=== PATIENT | female | born 1980 | race Hispanic/Latino ===

== ENCOUNTER 2018-05-20 19:59 | Emergency (ER) | payer MEDICAID ==
[2018-05-20] MEDS ORDERED: ACETAMINOPHEN 325 MG TAB ONE (21:20)
== END 2018-05-20 21:26 | disposition home or self-care (01) ==
LOC: EDH 19:59
DX: S93.401A Sprain of unspecified ligament of right ankle, initial encounter (principal); E11.9 Type 2 diabetes mellitus without complications; X58.XXXA Exposure to other specified factors, initial encounter; Y93.89 Activity, other specified; Y92.009 Unspecified place in unspecified non-institutional (private) residence as the place of occurrence of the external cause; Y99.8 Other external cause status
CPT/HCPCS: 73610

== ENCOUNTER 2018-06-23 11:17 | Emergency (ER) | payer MEDICAID, OTHER ==
[2018-06-23 11:44] LABS: BASOPHILS % (AUTO) 0.4 % (0.0-5.0); HEMATOCRIT 38.2 % (36-48); LYMPHOCYTES % (AUTO) 29.4 % (21.0-51.0); MEAN CORPUSCULAR HEMOGLOBIN 27.9 pg (27.0-33.0); MEAN CORPUSCULAR HGB CONC 33.6 g/dL (32.0-36.0); MONOCYTES % (AUTO) 5.9 % (3.0-13.0); NEUTROPHILS % (AUTO) 61.3 % (40.0-77.0); PLATELET COUNT (AUTO) 304 K/uL (130-400); RED CELL DISTRIBUTION WIDTH 14.5 % (11.0-15.5)
== END 2018-06-23 13:21 | disposition home or self-care (01) ==
LOC: EDH 11:17
DX: O20.0 Threatened abortion (principal); E11.9 Type 2 diabetes mellitus without complications; Z90.49 Acquired absence of other specified parts of digestive tract; Z79.899 Other long term (current) drug therapy; Z3A.08 8 weeks gestation of pregnancy
CPT/HCPCS: 36415; 76817; 84702; 85025; 86900; 86901

== ENCOUNTER 2018-12-27 16:45 | Inpatient (IN) | payer MEDICAID ==
[~2018-12-27] VITALS: Ht 162.6 cm; Wt 102.1 kg
[2018-12-27 17:51] LABS: APPEARANCE,URINE Clear (CLEAR); BILIRUBIN,URINE Negative (NEGATIVE); COLOR,URINE Yellow (YELLOW); GLUCOSE, URINE (UA) >=1000 mg/dL (NEGATIVE); KETONES,URINE 15 mg/dL (NEGATIVE); LEUKOCYTE ESTERASE ,URINE Small (NEGATIVE); NITRATE,URINE Negative (NEGATIVE); OCCULT BLOOD,URINE Negative (NEGATIVE); PH,URINE 5.5 (5.0-8.0); PROTEIN,URINE Negative (NEGATIVE); UROBILINOGEN,URINE 0.2 mg/dL (0.2-1.0)
[2018-12-27 17:58] LABS: BACTERIA,URINE Few /HPF (None Seen); RBC,URINE 0-1 /HPF (0-1); YEAST,URINE BUDDING Rare /HPF (None Seen)
[2018-12-27 18:00] LABS: SQUAMOUS EPITHELIAL CELL,UR Few /HPF (0-2)
[2018-12-27 18:40] LABS: CREATININE 0.7 mg/dL (0.5-1.5); POTASSIUM 3.9 mmol/L (3.5-5.1)
[2018-12-27 18:44] LABS: INR 0.9 (0.85-1.15); PARTIAL THROMBOPLASTIN TIME 26.9 SEC (26.3-35.5); PROTHROMBIN TIME 9.5 SEC (9.6-11.6)
[2018-12-27 18:45] LABS: ALBUMIN 2.7 g/dL (3.5-5.0); BILIRUBIN,TOTAL 0.5 mg/dL (0.2-1.0); TOTAL PROTEIN, SERUM 7.3 g/dL (6.0-8.3); URIC ACID 5.1 mg/dL (2.6-7.2)
[2018-12-27 18:56] LABS: BASOPHILS % (AUTO) 0.3 % (0.0-5.0); EOSINOPHILS % (AUTO) 0.6 % (0.0-8.0); LYMPHOCYTES % (AUTO) 22.9 % (21.0-51.0); MEAN CORPUSCULAR HEMOGLOBIN 27.8 pg (27.0-33.0); MEAN CORPUSCULAR HGB CONC 34.1 g/dL (32.0-36.0); MEAN CORPUSCULAR VOLUME 81.4 fL (79-99); MONOCYTES % (AUTO) 4.8 % (3.0-13.0); NEUTROPHILS % (AUTO) 71.4 % (40.0-77.0); PLATELET COUNT (AUTO) 236 K/uL (130-400); RED BLOOD CELL COUNT(AUTO) 4.91 MIL/uL (4.00-5.50); RED CELL DISTRIBUTION WIDTH 15.1 % (11.0-15.5); WHITE BLOOD COUNT (AUTO) 7.4 K/uL (4.8-10.8)
[2018-12-27] MEDS ORDERED: INSULIN HUMULIN R 100 UNIT/ML 3ML ONE (20:34)
[2018-12-27] MEDS ORDERED: INSULIN NPH 100 UNIT/ML 3ML SQ SCH (21:00)
[2018-12-28] MEDS: LACTATED RINGERS 1000ML 1,000 ML IV PRN ×2 (02:19→23:40)
[2018-12-28] MEDS ORDERED: INSULIN HUMULIN R 100 UNIT/ML 3ML SQ SCH ×2 (09:00)
[2018-12-28] MEDS ORDERED: INSULIN NPH 100 UNIT/ML 3ML SQ SCH (09:00)
[2018-12-28] MEDS ORDERED: CALDOLOR 800MG+NS 250ML 250 ML IV PRN (11:30)
[2018-12-28] MEDS ORDERED: CEFAZOLIN SODIUM 1 GM VIAL IVP PRN (11:30)
[2018-12-28] MEDS ORDERED: DEXAMETHASONE SOD PHOSPHATE 10MG/ML 1ML VIAL ONE (12:24)
[2018-12-28] MEDS ORDERED: ONDANSETRON HCL 4 MG/2 ML VIAL ONE (12:24)
[2018-12-28] MEDS ORDERED: OXYTOCIN 10 USP UNITS/ML ONE (12:25)
[2018-12-28] MEDS ORDERED: EPHEDRINE SULFATE 50 MG/ML AMPULE ONE (12:25)
[2018-12-28] MEDS ORDERED: DURAMORPH PF1 MG/ML 10ML AMP IV ONE (12:25)
[2018-12-28] MEDS ORDERED: CEFAZOLIN SODIUM 1 GM VIAL IVP ONE (12:45)
[2018-12-28] MEDS ORDERED: DiphenhydrAMINE HCL 50 MG/ML VIAL ONE (13:07)
[2018-12-28] MEDS ORDERED: OXYTOCIN-LR 20 UNITS/1000 ML 1,000 ML IV PRN (13:45)
[2018-12-28] MEDS ORDERED: MEPERIDINE-PF 75 MG/ML SYG IM PRN (13:45)
[2018-12-28] MEDS ORDERED: SODIUM CHLORIDE 0.9% 10 ML VIAL IVP PRN (13:45)
[2018-12-28] MEDS ORDERED: DEXTROSE 5 %-0.45 % NACL 1,000 ML IV PRN (13:45)
[2018-12-28] MEDS ORDERED: PROMETHAZINE HCL 25 MG/ML 1ML AMPULE IM PRN (13:45)
[2018-12-28] MEDS ORDERED: MEPERIDINE-PF 25 MG/ML SYG IV PRN (15:00)
[2018-12-28 15:57] VITALS: BP 140/75
[2018-12-28] MEDS: INSULIN HUMULIN R 100 UNIT/ML 3ML SQ SCH ×2 (16:52→21:10)
[2018-12-28] MEDS ORDERED: MEPERIDINE-PF 50 MG/ML SYG ONE (16:57)
--- NOTE | 2018-12-28 17:02 | NUR ---
PT C/O THROBBING PAIN TO INCISION 10/21. DEMEROL 50MG+25MG (TOTAL 75MG ORDERED) AND PHENERGAN 25MG GIVEN TO PT IM TO RIGHT DELTOID. NO BLOOD RETURN ON ASPIRATION. IM GIVEN USING ASEPTIC TECHNIQUE. PT TOLERATED WELL.
[2018-12-28 19:42] VITALS: BP 139/103
[2018-12-28 20:25] VITALS: BP 123/55
[2018-12-28] MEDS: CALDOLOR 800MG+NS 250ML 250 ML IV SCH (21:12)
[2018-12-28] MEDS ORDERED: INSU100V3 IJ ×2 (21:36)
[2018-12-28] MEDS ORDERED: NPH,100V SQ ×2 (21:36)
[2018-12-28] MEDS ORDERED: PREN1TAB80 PO (21:36)
[2018-12-28 23:10] VITALS: BP 138/74
[2018-12-29 03:30] VITALS: BP 114/52
[2018-12-29] MEDS: CALDOLOR 800MG+NS 250ML 250 ML IV SCH (06:07)
--- NOTE | 2018-12-29 06:10 | NUR ---
quevedo catheter removed, tip intact. abdominal dressing removed, incision is dry and intact , applied telfa dressing, applied abdominal binder. informed to call for assistance to the bathroom, pt voiced understanding. Addendum: 12/29/18 at 0720 by ADRIAN RIVAS RN Amended: Links added.
[2018-12-29 07:08] LABS: MEAN CORPUSCULAR HEMOGLOBIN 27.5 pg (27.0-33.0); MEAN CORPUSCULAR HGB CONC 33.6 g/dL (32.0-36.0); MEAN CORPUSCULAR VOLUME 81.7 fL (79-99); PLATELET COUNT (AUTO) 200 K/uL (130-400); RED CELL DISTRIBUTION WIDTH 14.7 % (11.0-15.5); WHITE BLOOD COUNT (AUTO) 11.5 K/uL (4.8-10.8)
[2018-12-29] MEDS: INSULIN HUMULIN R 100 UNIT/ML 3ML SQ SCH ×3 (07:21→21:19)
[2018-12-29 07:25] VITALS: BP 130/75
[2018-12-29] MEDS ORDERED: ACETAMINOPHEN EXTRA STRENGTH 500 MG TABLET PO PRN (08:45)
[2018-12-29] MEDS ORDERED: HYDROCODONE/ACETAMINOPHEN 5/325 MG TAB PO PRN (08:45)
[2018-12-29] MEDS ORDERED: BISACODYL 10 MG SUPP.RECT RC PRN (08:45)
[2018-12-29] MEDS: SIMETHICONE 80 MG TAB.CHEW PO PRN ×3 (08:55→21:20)
[2018-12-29] MEDS: DOCUSATE SODIUM 100 MG CAP PO SCH ×2 (08:55→21:20)
[2018-12-29] MEDS: IBUPROFEN 600 MG TABLET PO PRN ×2 (08:58→16:29)
--- NOTE | 2018-12-29 09:00 | NUR ---
PATIENT STATES HAVING VOIDED PIV WAS REMOVED AND IV SITE WNL.
[2018-12-29 11:24] VITALS: BP 117/70
--- NOTE | 2018-12-29 11:30 | NUR ---
DR. AMOR ROUNDED AND INDICATED THAT IF ALL GOES WELL SHE WILL DISCHARGE HER IN A.M.
--- NOTE | 2018-12-29 13:55 | NUR ---
PATIENT DENIES ANY PAIN. STATES BEING TIRED AND WANTING TO TAKE A NAP.
[2018-12-29 15:13] VITALS: BP 131/63
[2018-12-29 16:36] VITALS: BP 135/77
[2018-12-29 20:07] VITALS: BP 139/83
[2018-12-29] MEDS: ACETAMINOPHEN-CODEINE 300/30MG TAB PO PRN (20:12)
[2018-12-30 00:12] VITALS: BP 136/72
[2018-12-30] MEDS: IBUPROFEN 600 MG TABLET PO PRN ×2 (02:24→09:47)
[2018-12-30 04:08] VITALS: BP 109/65
[2018-12-30] MEDS: INSULIN HUMULIN R 100 UNIT/ML 3ML SQ SCH (06:39)
[2018-12-30] MEDS: ACETAMINOPHEN-CODEINE 300/30MG TAB PO PRN (06:41)
[2018-12-30 07:45] VITALS: BP 149/85
[2018-12-30 08:11] LABS: HEPATITIS Bs ANTIGEN SCREEN P Negative (Negative)
--- NOTE | 2018-12-30 09:00 | NUR ---
DR. AMOR ROUNDED AND DISCHARGED PT TO HOME. PATIENT STABLE.
[2018-12-30] MEDS: DOCUSATE SODIUM 100 MG CAP PO SCH (09:29)
[2018-12-30] MEDS: SIMETHICONE 80 MG TAB.CHEW PO PRN (09:29)
[2018-12-30 12:00] VITALS: BP 138/91
--- NOTE | 2018-12-30 12:00 | NUR ---
DISCHARGE INSTRUCTIONS GIVEN AND NOON VITAL SIGNS DONE. BP A LITTLE ELEVATED 138/91, OTHERWISE STABLE. WANTS TO GO VISIT WITH BABY PRIOR TO GOING HOME.
--- NOTE | 2018-12-30 12:45 | NUR ---
BACK FROM NURSERY AND WAS TAKEN AT THIS TIME VIA W/C TO FAMILY VEHICLE. PATIENT DENIES PAIN AND WAS DISCHARGED TO HER SPOUSE.
== END 2018-12-30 12:45 | disposition home or self-care (01) | DRG 539 ==
LOC: LDH 16:45 → OBSVTOIN 16:45 → WSH 12-28 15:45
PROVIDERS: ADMIT Obstetrics & Gynecology; ATTEND Obstetrics & Gynecology
PROC: 0UB70ZZ Excision of Bilateral Fallopian Tubes, Open Approach (ICD-10-PCS; 2018-12-28)
PROC: 10D00Z1 Extraction of Products of Conception, Low, Open Approach (ICD-10-PCS; principal; 2018-12-28 12:35)
DX: O14.04 Mild to moderate pre-eclampsia, complicating childbirth (principal); O24.12 Pre-existing type 2 diabetes mellitus, in childbirth; E11.9 Type 2 diabetes mellitus without complications; E66.01 Morbid (severe) obesity due to excess calories; O76 Abnormality in fetal heart rate and rhythm complicating labor and delivery; O99.214 Obesity complicating childbirth; O34.211 Maternal care for low transverse scar from previous cesarean delivery; Z3A.35 35 weeks gestation of pregnancy; Z30.2 Encounter for sterilization; Z37.0 Single live birth
CPT/HCPCS: 36415; 59025; 59510; 76805; 80053; 81001; 82948; 84550; 85025; 85027; 85384; 85610; 85730; 86592; 86701; 86850; 86900; 86901; 87340; 87390; 88302; 96360; 96361; A4344; A4450; G0378; J0690; J1100; J1200; J1741; J1815; J2175; J2274; J2405; J2550; J2590; J3490; J7120